=== PATIENT | female | born 1975 | race Caucasian/White ===

== ENCOUNTER → 2020-11-14 17:33 | Outpatient (BNVA) | payer MEDICAID, OTHER, SELFPAY | PROVIDERS: Family Provider Family Medicine; Visit Provider Emergency Medicine | DX: Z20.822 Contact with and (suspected) exposure to COVID-19 (principal); G40.909 Epilepsy, unspecified, not intractable, without status epilepticus | CPT/HCPCS: 87635 ==

== ENCOUNTER → 2020-12-21 16:41 | Outpatient (BNVA) | payer MEDICAID, SELFPAY | PROVIDERS: Family Provider Family Medicine; Visit Provider Family Medicine | DX: G40.909 Epilepsy, unspecified, not intractable, without status epilepticus (principal); I10 Essential (primary) hypertension; J44.9 Chronic obstructive pulmonary disease, unspecified; Z13.220 Encounter for screening for lipoid disorders; Z13.6 Encounter for screening for cardiovascular disorders; M54.12 Radiculopathy, cervical region; M25.511 Pain in right shoulder; G89.29 Other chronic pain; F41.1 Generalized anxiety disorder; F33.2 Major depressive disorder, recurrent severe without psychotic features; Z76.89 Persons encountering health services in other specified circumstances | CPT/HCPCS: 80053; 80061; 85025 ==

== ENCOUNTER 2020-12-27 10:55 | Emergency (ER) | payer MEDICAID, SELFPAY ==
--- NOTE | 2020-12-27 10:57 | ED_ITS ---
HPI - Seizure General: Chief Complaint: Seizure Stated Complaint: SEIZURE Time Seen by Provider: 12/27/20 10:56 History of Present Illness: HPI Narrative: Ms. Blanco is a 45-year-old lady with significant past medical history of seizures who presents to the emergency department due to seizure. She reports onset of symptoms was in the early after multiple traumatic brain injuries. Prior to this she never had a seizure. She has been on medication intermittently and has some struggles with substance abuse however reports being clean for a number of months. She ran out of her prescriptions about 5 days ago and just got them refilled. Earlier, while at [employer], she describes flashing lights in her left eye and a weird feeling and subsequently had witnessed tonic-clonic seizure activity. This aura is typical of her seizures. Other than missing doses of her antiepileptic medication she cannot think of any other specific changes in health, provoking, exacerbating factors. She denies infectious symptoms. She denies recent head trauma. Review of Systems General: Reports: 10 or more systems reviewed and unremarkable except in HPI and below Narrative: CONSTITUTIONAL: denies fever, fatigue, weakness EYES - denies pain, denies loss of vision EARS - denies ear issues. NOSE - denies congestion or rhinorrhea. THROAT - denies sore throat or difficulty swallowing. CARDIOVASCULAR - denies chest pain and palpitations RESPIRATORY - denies shortness of breath and cough GASTROINTESTINAL - denies abdominal pain, no nausea vomiting, no changes in bowel habits GENITOURINARY - denies dysuria or urinary frequency MUSCULOSKELETAL- denies deformity. Generalized muscle aches after seizure SKIN - denies rashes or new changed skin lesions NEUROLOGIC - denies focal weakness or sensory changes. See HPI HEMATOLOGIC/LYMPHATIC - denies easy bruising or lymphadenopathy. [facility] ED PFSH: Medical History Depression JEFFRY (generalized anxiety disorder) History of attempted suicide History of methamphetamine abuse Seizure disorder Social History Smoking and tobacco status: current every day smoker e-cigarettes E-Cigarette Details: vaporizer device Second hand smoke exposure: Yes Alcohol intake: former Year of sobriety/quit date alcohol: 2020 Female Reproductive History: Spontaneous abortions: No Physical Exam Narrative: EXAM NARRATIVE: GENERAL/CONSTITUTIONAL - well-appearing. No acute distress. Eyes - PERRL, no conjunctival injection ENMT - Atraumatic external nose and ears. Moist mucous membranes NECK - supple. trachea midline CARDIOVASCULAR - regular rate and rhythm. Peripheral pulses 2+ and equal RESPIRATORY -clear to auscultation bilaterally. No retractions or accessory muscle use. ABDOMEN/GI - Nontender/Nondistended. No tenderness to percussion or evidence of peritonitis MSK - Extremities without obvious deformity or tenderness to palpation SKIN - Warm, Dry NEURO - alert and appropriately oriented. strength and sensation intact. Moves all extremities equally. PSYCH - Appropriate mood and affect Course ED course: - Patient was seen and evaluated by me at bedside - Patient placed on cardiac monitors, IV access obtained - Initial evaluation notable for no acute distress, nontoxic appearance. - Fluids ordered - I was called back into the room as the patient was having another generalized tonic-clonic seizure. This terminated with 2 mg of Ativan and lasted approximately 2 minutes - Labs notable for no acute abnormality to explain the patient's seizures - The patient reported visual changes which are likely secondary to seizure activity however imaging warranted due to this. - Imaging notable for no acute intercranial hemorrhage or mass - Unfortunately neurology is not on-call this weekend. I tried to get recommendations from a neurologist via telephone in [place] however she was unwilling to give telephone recommendations regarding this patient. As such I use best clinical judgment and ordered Keppra dose. This was given in hopes that it would prevent further seizures until Topamax can reach therapeutic level. - Upon serial reexamination after treatment the patient was similar without development of additional seizures - Based on patient history, evaluation, labs, and imaging as interpreted the most likely cause of the patient's condition is baseline seizure disorder with missed doses of medication - The results of ED evaluation were discussed with the patient including prescriptions and/or symptomatic cares (if applicable) including appropriate and responsible use, followup plan, and return precautions. The patient verbalized understanding and felt safe for discharge. - Patient discharged in satisfactory condition. Vital Signs: Vital signs: Vital Signs Temperature 98.5 F 12/27/20 11:01 Pulse Rate 74 12/27/20 15:50 Respiratory Rate 15 12/27/20 15:50 Blood Pressure 104/72 12/27/20 15:50 Pulse Oximetry 95 12/27/20 15:50 MDM - Seizure Medical Records: Attestation: I reviewed the patient's medical records. Lab Data: Attestation: I reviewed the patient's lab results. Labs: Lab Results 12/27/20 12/27/20 12/27/20 Range/Units 11:55 11:55 11:55 WBC 7.9 (4.0-10.0) 10^3/ uL RBC 4.52 (4.1-5.3) 10^6/u L Hgb 14.6 (11.5-15.3) g/dL Hct 44.7 (37.0-47.0) % MCV 98.9 (81-99) fl MCH 32.3 (28.0-34.0) pg MCHC 32.7 (30.0-36.0) g/dL RDW 13.1 (12.1-15.1) % Plt Count 237 (130-400) 10^3/c mm MPV 10.7 H (7.4-10.4) fL Neut % (Auto) 53.7 % Lymph % (Auto) 34.6 % [place] % (Auto) 9.9 % Eos % (Auto) 0.8 % Baso % (Auto) 0.5 % Neut # (Auto) 4.26 (1.8-7.7) 10^3/u L Lymph # (Auto) 2.8 (0.8-4.8) 10^3/u L [place] # (Auto) 0.8 (0.2-0.9) 10^3/u L Eos # (Auto) 0.1 (0.0-0.8) 10^3/u L Baso # (Auto) 0.0 (0.0-0.1) 10^3/u L Nucleated RBC % (a uto) 0 % Nucleated RBCs # 0.0 /100WBC Sodium 138 (136-145) mmol/L Potassium 3.9 (3.5-5.1) mmol/L Chloride 100 (98-107) mmol/L Carbon Dioxide 21 L (22-29) mmol/L Anion Gap 20.9 H (5-19) BUN 18 (6-20) mg/dL Creatinine 0.6 (0.5-0.9) mg/dL GFR Calculation 107.2 (90-130) mL/min Glucose 82 (65-115) mg/dL Calculated Osmolal ity 287 (285-295) mOsm/k g Calcium 9.2 (8.5-10.5) mg/dL Magnesium 1.8 (1.7-2.3) mg/dL Total Bilirubin 0.2 (0.15-1.2) mg/dL AST 14 (0-32) U/L ALT 14 (0-33) U/L Alkaline Phosphata se 59 (35-105) IU/L Total Protein 6.8 (6.6-8.7) g/dL Albumin 4.1 (3.5-5.2) g/dL Globulin 2.7 (1.3-4.6) g/dL HCG, Qual Negative (Negative) Urine Color (Yellow) Urine Appearance (CLEAR) Urine pH (5-7) Ur Specific Gravit y (1.005-1.030) Urine Protein (Negative) Urine Glucose (UA) (Normal) Urine Ketones (Negative) Urine Blood (Negative) Urine Nitrate (Negative) Urine Bilirubin (Negative) Urine Urobilinogen (Negative) mg/dL Ur Leukocyte Keyanna ase (Negative) Valproic Acid 79.1 (50-100) ug/mL 12/27/20 Range/Units 14:03 WBC (4.0-10.0) 10^3/ uL RBC (4.1-5.3) 10^6/u L Hgb (11.5-15.3) g/dL Hct (37.0-47.0) % MCV (81-99) fl MCH (28.0-34.0) pg MCHC (30.0-36.0) g/dL RDW (12.1-15.1) % Plt Count (130-400) 10^3/c mm MPV (7.4-10.4) fL Neut % (Auto) % Lymph % (Auto) % [place] % (Auto) % Eos % (Auto) % Baso % (Auto) % Neut # (Auto) (1.8-7.7) 10^3/u L Lymph # (Auto) (0.8-4.8) 10^3/u L [place] # (Auto) (0.2-0.9) 10^3/u L Eos # (Auto) (0.0-0.8) 10^3/u L Baso # (Auto) (0.0-0.1) 10^3/u L Nucleated RBC % (a uto) % Nucleated RBCs # /100WBC Sodium (136-145) mmol/L Potassium (3.5-5.1) mmol/L Chloride (98-107) mmol/L Carbon Dioxide (22-29) mmol/L Anion Gap (5-19) BUN (6-20) mg/dL Creatinine (0.5-0.9) mg/dL GFR Calculation (90-130) mL/min Glucose (65-115) mg/dL Calculated Osmolal ity (285-295) mOsm/k g Calcium (8.5-10.5) mg/dL Magnesium (1.7-2.3) mg/dL Total Bilirubin (0.15-1.2) mg/dL AST (0-32) U/L ALT (0-33) U/L Alkaline Phosphata se (35-105) IU/L Total Protein (6.6-8.7) g/dL Albumin (3.5-5.2) g/dL Globulin (1.3-4.6) g/dL HCG, Qual (Negative) Urine Color Yellow (Yellow) Urine Appearance Clear (CLEAR) Urine pH 7 (5-7) Ur Specific Gravit y 1.005 (1.005-1.030) Urine Protein Neg (Negative) Urine Glucose (UA) Norm (Normal) Urine Ketones Negative (Negative) Urine Blood Neg (Negative) Urine Nitrate Negative (Negative) Urine Bilirubin Neg (Negative) Urine Urobilinogen Norm (Negative) mg/dL Ur Leukocyte Keyanna ase Negative (Negative) Valproic Acid (50-100) ug/mL Discharge Plan Discharge Patient Disposition: Home Clinical Impression: Seizure Condition: Stable Prescriptions: No Action gabapentin 300 mg capsule 300 mg PO BID PRN (Reason: arm pain) 30 Days Qty: 60 RF: 2 divalproex [Depakote] 500 mg tablet,delayed release (DR/EC) 500 mg PO BID 30 Days Qty: 60 RF: 2 topiramate 200 mg tablet 200 mg PO BID 30 Days Qty: 60 RF: 2 hydrochlorothiazide 25 mg tablet 25 mg PO DAILY RF: 0 fluoxetine 40 mg capsule 40 mg PO DAILY RF: 0 Discharge Orders: Discharge ED (Routine); Ordered 08/22/21 Ordered By: Magdiel Godwin Referrals: Tomeka Hughes MD [Primary Care Provider] - Discharge Diet: Usual diet Discharge Activity: Limit activity as instructed Patient Instructions: Recurrent Seizures Adult (ED), Women and Epilepsy (ED) Activity Restrictions/Additional Instructions: Thank you for visiting the emergency department. You were seen and evaluated for seizure. You had an additional seizure while in the emergency department. The cause of your seizures is likely due to your underlying seizure disorder and missed doses of medication. You were given an additional medication that should hopefully help prevent seizures until your typical regimen reaches therapeutic concentration. Please follow-up with your primary care provider and neurologist. Please continue to take your medications as prescribed. Please follow all standard seizure precautions including not driving, not swimming, not cooking over open flames, not performing any dangerous tasks that would otherwise put you at risk if you were to have another seizure. Please return to the emergency department for anything that you are concerned about and feel needs emergency department evaluation. Coding Level of Care Code ED Head Of Strategy for Sean Santos
[2020-12-27 11:01] VITALS: BP 115/79; PULSE 68; RESP 18; TEMP 36.9; O2SAT 98; BMI 35.3
[2020-12-27] MEDS: LORazepam 2 mg/mL INJ 1 mL IVP (11:42)
--- NOTE | 2020-12-27 11:43 | PC.NURSE ---
Pt actively starts seizing, duration 30s, 2mg IV Ativan administered. Seizing has resolved, pt now starting to respond verbally.
--- NOTE | 2020-12-27 12:00 | CTR_ITS ---
PROCEDURE INFORMATION: Exam: CT Head Without Contrast Exam date and time: 12/27/2020 12:00 PM Age: 45 years old Clinical indication: Other: Seizure TECHNIQUE: Imaging protocol: Computed tomography of the head without contrast. Radiation optimization: All CT scans at this facility use at least one of these dose optimization techniques: automated exposure control; mA and/or kV adjustment per patient size (includes targeted exams where dose is matched to clinical indication); or iterative reconstruction. COMPARISON: No relevant prior studies available. RADIATION DOSE METRICS: Total DLP (mGy-cm): 1250.62 FINDINGS: Brain: Symmetric prominence of the cortical sulci relative to the stated patient age. No acute cortical infarct, mass effect, or intracranial hemorrhage. Symmetric punctate basal ganglia hypodensities, which are not believed to be of acute clinical significance. Cerebral ventricles: Normal configuration of the ventricles. Paranasal sinuses: No sinus fluid. Mastoid air cells: No mastoid effusion. Bones/joints: No acute calvarial pathology. Soft tissues: Subtle infiltration of subcutaneous fat in the left frontal region. CT/CT head wo con* [id number] IMPRESSION: No acute intracranial pathology. Radiation Dose CTDIVOL = (mGy): DLP = 1250.62 (mGy-cm)
[2020-12-27] MEDS: sodium chloride 0.9% 1,000 ML 999 ML IV (12:01)
[2020-12-27] MEDS: acetaminophen 500 mg Tablet 1000 MG PO (12:01)
--- NOTE | 2020-12-27 12:07 | ECG_ITS ---
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 Measurements Intervals Challenge Rate: 70 P: 60 ME: 130 QRS: 55 QRSD: 95 T: 53 QT: 414 QTc: 449 Interpretive Statements SINUS RHYTHM POSSIBLE LEFT ATRIAL ENLARGEMENT [-0.1mV P WAVE IN V1/V2] POSSIBLE RIGHT VENTRICULAR CONDUCTION DELAY [RSR (QR) IN V1/V2] No previous ECG available for comparison Electronically Signed On 12-28-2020 13:27:01 CDT by Rupinder Juárez M.D. [id number]
[2020-12-27 12:08] LABS: Basophils % 0.5 %; Eosinophils # 0.1 10^3/uL (0.0-0.8); Eosinophils % 0.8 %; Hematocrit 44.7 % (37.0-47.0); Hemoglobin 14.6 g/dL (11.5-15.3); Lymphocytes # 2.8 10^3/uL (0.8-4.8); Lymphocytes % 34.6 %; Mean Corpuscular HGB Conc 32.7 g/dL (30.0-36.0); Mean Corpuscular Hemoglobin 32.3 pg (28.0-34.0); Mean Corpuscular Volume 98.9 fl (81-99); Mean Platelet Volume 10.7 fL (7.4-10.4); Monocytes # 0.8 10^3/uL (0.2-0.9); Monocytes % 9.9 %; Neutrophils # 4.26 10^3/uL (1.8-7.7); Neutrophils % 53.7 %; Nucleated Red Blood Cells % 0 %; Platelet Count 237 10^3/cmm (130-400); Red Blood Count 4.52 10^6/uL (4.1-5.3); Red Cell Distribution Width 13.1 % (12.1-15.1); White Blood Count 7.9 10^3/uL (4.0-10.0)
[2020-12-27 12:18] VITALS: BP 104/72; PULSE 74; RESP 15; O2SAT 95
[2020-12-27 12:37] LABS: Alanine Aminotransferase 14 U/L (0-33); Albumin Level 4.1 g/dL (3.5-5.2); Alkaline Phosphatase 59 IU/L (35-105); Anion Gap 20.9 (5-19); Aspartate Amino Transferase 14 U/L (0-32); Blood Urea Nitrogen 18 mg/dL (6-20); Calcium 9.2 mg/dL (8.5-10.5); Carbon Dioxide 21 mmol/L (22-29); Chloride 100 mmol/L (98-107); Globulin 2.7 g/dL (1.3-4.6); Glomerular Filtration Rate 107.2 mL/min (90-130); Glucose 82 mg/dL (65-115); Magnesium 1.8 mg/dL (1.7-2.3); Osmolality Calculated 287 mOsm/kg (285-295); Potassium 3.9 mmol/L (3.5-5.1); Sodium 138 mmol/L (136-145); Total Bilirubin 0.2 mg/dL (0.15-1.2); Total Protein 6.8 g/dL (6.6-8.7); Valproic Acid Level 79.1 ug/mL (50-100)
[2020-12-27 14:38] LABS: HCG, Serum Qual Negative (Negative)
[2020-12-27 15:50] VITALS: BP 104/72; PULSE 74; RESP 15; O2SAT 95
[2020-12-27 15:50] LABS: Add Urine Microscopic? NO; Bilirubin Urine Neg (Negative); Blood Urine Neg (Negative); Glucose Urine UA Norm (Normal); Ketones Urine Negative (Negative); Leukocyte Esterase Urine Negative (Negative); Nitrate Urine Negative (Negative); Protein Urine Neg (Negative); Specific Gravity, Urine 1.005 (1.005-1.030); Urine Appearance Clear (CLEAR); Urine Color Yellow (Yellow); Urobilinogen Urine Norm (Negative); pH Urine 7 (5-7)
[2020-12-27 15:52] LABS: Charge for UA Resulting for Rev
--- NOTE | 2020-12-28 08:45 | DCPLANNER ---
quality control systems manager had message to schedule a follow up appointment for patient with neurology. quality control systems manager emailed patients information to the neurology clinic. Patients information will be printed and reviewed. Clinic will call patient with appointment information.
--- NOTE | 2020-12-29 07:46 | DCPLANNER ---
Patient has a follow up appointment scheduled for Tuesday, January 05, 2021 at 12:[address] Peters. Clinic will contact patient with appointment information.
--- NOTE | 2021-01-06 13:35 | DCPLANNER ---
Patient had a follow up appointment scheduled for 01.05.[address] Peters - patient did attend appointment.
== END 2020-12-27 15:51 | disposition home or self-care (01) ==
PROVIDERS: Emergency Provider Emergency Medicine; PCP Family Medicine
DX: R56.9 Unspecified convulsions (principal); F17.210 Nicotine dependence, cigarettes, uncomplicated
CPT/HCPCS: 70450; 80053; 80164; 81003; 83735; 84703; 85025; 93005; 96361; 96374; 96375; 99284; J1953; J2060; J7030

== ENCOUNTER 2020-12-28 18:25 | Emergency (ER) | payer MEDICAID, SELFPAY ==
--- NOTE | 2020-12-28 18:30 | W.ED.SEIZURE ---
HPI - Seizure General: Chief Complaint: Seizure Stated Complaint: SEIZURE Time Seen by Provider: 12/28/20 18:25 Source: patient and EMS Mode of arrival: EMS Limitations: no limitations History of Present Illness: HPI Narrative: 45-year-old female has a long history of seizures he states she been out of her Depakote for a while but started taking again 6 days ago. Patient was seen here after seizure yesterday and had an extensive work-up and head CT that were all negative. Patient states she had one seizure today at 5 she is awake and alert now able answer my questions appropriately. Denies any headache. She states that she just recently moved here and does not have a PCP here but does see a Dr. Peters next week. Seizure History: Yes Associated symptoms: Deny chest pain, chills or fever(s) Review of Systems Const: Denies: fever(s), chills, body aches or change in appetite Eyes: Denies: blurry vision or eye discomfort ENMT: Denies: throat pain or dental pain Card: Denies: chest pain Resp: Denies: dyspnea GI: Denies: abdominal pain, nausea, vomiting or diarrhea : Denies: dysuria Musc: Denies: neck pain or back pain Skin/Breast: Denies: rash Neuro: Reports: seizure-like activity Psych: Denies: depression Turner/Lymph: Denies: easy bruising All/Imm: Denies: urticaria PFSH ED PFSH: Medical History (Updated 12/28/20 @ 18:59 by Chance Mccann MD) Depression JEFFRY (generalized anxiety disorder) History of attempted suicide History of methamphetamine abuse Seizure disorder Social History Smoking and tobacco status: current every day smoker e-cigarettes E-Cigarette Details: vaporizer device Second hand smoke exposure: Yes Alcohol intake: former Year of sobriety/quit date alcohol: 2020 Female Reproductive History: Spontaneous abortions: No Physical Exam Const: COMMON NORMALS: no acute distress, patient oriented x3 and healthy appearing HENMT: COMMON NORMALS: normocephalic and atraumatic HEAD & SCALP: normocephalic and atraumatic Eye: COMMON NORMALS: Equal, round and reactive pupils present and EOMs intact bilaterally PUPIL: Yes Equal, round and reactive pupils present Neck/C-Spine: COMMON NORMALS: full ROM and supple Chest: COMMONS NORMALS: normal inspection of the chest and normal palpation of entire chest wall Resp: COMMON NORMALS: normal respiratory effort, No retractions, No use of accessory muscles and clear to auscultation bilaterally AUSCULTATION: clear to auscultation bilaterally Cardio: COMMON NORMALS: regular rate, regular rhythm and No murmurs present (Cardio) RATE: regular rate RHYTHM: regular rhythm GI: COMMON NORMALS: Normal to inspection, nondistended, normoactive bowel sounds present, Soft to palpation, non-tender and no masses PALPATION: Yes Soft to palpation Extremity: COMMON NORMALS: normal to inspection and full ROM Neuro: COMMON NORMALS: patient oriented x3, moves all extremities and no focal motor deficits Psych: COMMON NORMALS: mental status grossly normal, Normal thought process present and cooperative THOUGHT PROCESS: Normal thought process present Skin: COMMON NORMALS: no rashes or lesions noted and no wounds GENERAL SKIN EXAM: no rashes or lesions noted Course Vital Signs: Vital signs: Vital Signs Temperature 98.2 F 12/28/20 18:32 Pulse Rate 68 12/28/20 18:32 Respiratory Rate 18 12/28/20 18:32 Blood Pressure 115/78 12/28/20 18:32 MDM - Seizure MDM Narrative: Medical decision making narrative: Patient presents here with a seizure. She has a long history of seizure disorder is seen here yesterday had a full work-up. She is at her baseline here and is well-appearing. She has a appoint with neurologist in a week as well. I feel she is stable for discharge and is to follow-up with PCP and return if worsening. Discharge Plan Discharge Patient Disposition: Home Clinical Impression: Seizure disorder Condition: Stable Prescriptions: No Action gabapentin 300 mg capsule 300 mg PO BID PRN (Reason: arm pain) 30 Days Qty: 60 RF: 2 divalproex [Depakote] 500 mg tablet,delayed release (DR/EC) 500 mg PO BID 30 Days Qty: 60 RF: 2 topiramate 200 mg tablet 200 mg PO BID 30 Days Qty: 60 RF: 2 hydrochlorothiazide 25 mg tablet 25 mg PO DAILY RF: 0 fluoxetine 40 mg capsule 40 mg PO DAILY RF: 0 Discharge Orders: Discharge ED (Routine); Ordered 12/28/20 Ordered By: Korby Siobhan Referrals: Tomeka Hughes MD [Primary Care Provider] - 1-3 days Discharge Diet: Advance as tolerated Discharge Activity: Resume usual activity Patient Instructions: Seizures Coding Level of Care Code ED Movable Bulkhead Installer for Chg Fwd Exam Comprehensive
[2020-12-28 18:32] VITALS: BP 115/78; PULSE 68; RESP 18; TEMP 36.8; BMI 35.4
[2020-12-28] MEDS: LORazepam 2 mg/mL INJ 1 mL 1 MG IVP (19:04)
[2020-12-28 19:08] VITALS: BP 114/71; PULSE 60; RESP 18; O2SAT 99
== END 2020-12-28 19:10 | disposition home or self-care (01) ==
PROVIDERS: Emergency Provider Emergency Medicine; PCP Family Medicine
DX: G40.909 Epilepsy, unspecified, not intractable, without status epilepticus (principal); F17.210 Nicotine dependence, cigarettes, uncomplicated
CPT/HCPCS: 96374; 99283; J2060

== ENCOUNTER → 2021-01-05 12:02 | Outpatient (BNVA) | payer MEDICAID, SELFPAY | PROVIDERS: PCP Family Medicine; Visit Provider Specialist | DX: G40.209 Localization-related (focal) (partial) symptomatic epilepsy and epileptic syndromes with complex partial seizures, not intractable, without status epilepticus (principal); G40.909 Epilepsy, unspecified, not intractable, without status epilepticus; F43.10 Post-traumatic stress disorder, unspecified; F15.21 Other stimulant dependence, in remission; F17.290 Nicotine dependence, other tobacco product, uncomplicated | CPT/HCPCS: 99205 ==

== ENCOUNTER → 2021-02-22 12:56 | Outpatient (BNVA) | payer MEDICAID, SELFPAY | PROVIDERS: PCP Family Medicine; Visit Provider Specialist | DX: G40.209 Localization-related (focal) (partial) symptomatic epilepsy and epileptic syndromes with complex partial seizures, not intractable, without status epilepticus (principal); F17.290 Nicotine dependence, other tobacco product, uncomplicated | CPT/HCPCS: 95816 ==

== ENCOUNTER 2021-02-23 11:10 | Observation (INO) | payer MEDICAID, SELFPAY ==
--- NOTE | 2021-02-23 11:12 | XRR_ITS ---
PROCEDURE INFORMATION: Exam: XR Chest Exam date and time: 02/23/2021 11:12 AM Age: 45 years old Clinical indication: Pain and condition or disease; Other: Seizure; Angina pectoris; Prior surgery; Surgery type: Back, gallbladder; Additional info: Chest pain TECHNIQUE: Imaging protocol: XR of the chest. Views: 1 view. COMPARISON: No relevant prior studies available. FINDINGS: Lungs: Unremarkable. No consolidation. Pleural spaces: Unremarkable. No pleural effusion. No pneumothorax. Heart/Mediastinum: Unremarkable. No cardiomegaly. Bones/joints: Unremarkable. XR/XR chest 1V portable [id number] IMPRESSION: No acute findings. Radiation Dose CTDIVOL = (mGy): DLP = (mGy-cm)
[2021-02-23 11:13] VITALS: BP 141/78; PULSE 57; RESP 18; TEMP 37.3; O2SAT 99; BMI 35.9
--- NOTE | 2021-02-23 11:18 | ED_ITS ---
HPI - General Adult General: Chief complaint: Seizure Stated complaint: SEIZURE Time Seen by Provider: 02/23/21 11:12 History of Present Illness: HPI narrative: HPI: [45]yo patient w/ hx ofepilespy on multiple medication BIBA to the ED with breakthrough episode of the seizure which occurred 1 hrs ago at work. The incident was witnessed entirely by coworkers while patient slowly got to the ground and started shaking. En route, the patient had a fingerstick glucose of 90 and was back to baseline. HDS without any signs of focal neurological deficits. On arrival, the patient is AAOx3, GCS of 15 and answering all questions. The patient denies any associated chest pain, shortness of breath, palpitations, or any focal pain in the arms and legs. Last time breakthrough seizure occurred last monday Onset: 1 hr ago Duration: x1 episode Location: home Severity: moderate Review of Systems Narrative: Constitutional: No fever, no chills. HEENT: No vision changes, +neck pain CV: No chest pain, no palpitations PULM: No productive cough, no dyspnea. GI: No abdominal pain, no N/V/D. : No Dysuria MSKEL: +b/l shoulder pain SKIN: No new rashes, no lesions. NEURO: +headache, no focal weakness. + 1 episode of seizure HEME: No visible bruises PSYCH: Normal mood PFSH ED PFSH: Medical History (Updated 02/23/21 @ 16:45 by Michelle Montana MD) Depression JEFFRY (generalized anxiety disorder) History of attempted suicide History of methamphetamine abuse Seizure disorder Surgical History (Updated 02/23/21 @ 16:45 by Michelle Montana MD) History of cholecystectomy Tubal ligation status Social History Smoking and tobacco status: current every day smoker (vape) e-cigarettes E- Cigarette Details: vaporizer device Second hand smoke exposure: Yes Alcohol intake: former Year of sobriety/quit date alcohol: 2020 Female Reproductive History: Spontaneous abortions: No Physical Exam Narrative: EXAM NARRATIVE: Head: Atraumatic Eyes: PERRL, conjunctiva without injection, eyes tracking ENT: Mucous membrane moist NECK: Supple without lymphadenopathy, no midline tenderness LUNGS: LCTAB CV: RRR ABDOMEN: Soft, nontender in all quadrants, no guarding or rebound tenderness, no CVA or flank tenderness bilaterally EXTREMITY: Normal ROM intact over the shoulders SKIN: No rash or erythema NEURO: CN II-XII tested and intact. Sensation intact to sharp/dull differentiation in all extremities. Motor: Normal tone and bulk. No abnormal movements appreciated. No pronator drift. Strength tested and 5/5 in bilateral wrist flexion/extension, elbow flexion/extension, shoulder abduction, straight leg raise, knee flexion/extension, ankle dorsiflexion/plantarflexion. Patient ambulates with a steady gait. Coordination: Finger to nose and heel to bethea testing intact bilaterally. Reflexes intact in the ankles, knees, and elbows bilaterally PSYCH: Cooperative mood and affect Course Vital Signs: Vital signs: Vital Signs Temperature 97.8 F 02/25/21 14:07 Pulse Rate 62 02/25/21 14:07 Respiratory Rate 16 02/25/21 14:07 Blood Pressure 106/70 02/25/21 14:07 Pulse Oximetry 97 02/25/21 14:07 MDM - General Adult MDM Narrative: Medical decision making narrative: [45]yo patient w/ known hx of seizure on divalproex, keppra and topiramate BIBA after an episode of seizure with unknown duration which occurred 60 minutes ago. Back to baseline on arrival, AAOX3 with non-focal neuro exam. HDS. Exam revealed no focal trauma/deformity/bruises.The episode of seizure was witnessed and without any trauma/injury to the head. No immunosuppression hx and without preceding fever. No history of alcohol abuse or suspicion for toxin ingestion. Hx of prior seizure likely breakthrough seizure in the setting of medication change/non- compliance. H No lips/tongue lacerations. No visible bowel/bladder incontinence Airway protected. No drooling. Sats > 95%. Unlikely to be stroke, neurogenic syncope, acute delirium, intracranial tumor/mass, intracranial bleed, SAH/subdural hematoma/epidural hematoma, meningitis, or intracranial abscess, or from alcohol withdrawal. EMS Interventions: Workup: CBC, BMP, Magnesium, EKG, valproic acid level, tropoinin, and XR chest ED Interventions: 1g of keppra, PO challenge, serial reassessment EKG: No e/o STEMI. No evidence of Brugada?s sign, delta wave, epsilon wave, significantly prolonged QTc, or malignant arrhythmia. Lab findings: Electrolytes including K and Mg wnl. [2:23pm] On reassessment, patient back to baseline. Patient continued to have 2 episodes of seizures while observed in the ED. time, patient rolls her eyes back and start shaking in her arms and biting her tongue. Patient did not have any general clonic seizure in the lower extremities. Patient received 4 mg of Ativan, 50 mg of Librium, and 500 mg of valproic acid. Case was discussed with Dr. Peters who informs that patient had an EEG yesterday that was negative. Patient will be admitted to the hospital for observation and breakthrough seizure. Reported of fourteen today. Will trend with serial troponin and EKG. Disposition: Admission Lab Data: Labs: Lab Results 02/23/21 02/23/21 02/23/21 12:20 12:20 12:20 WBC 8.5 10^3/uL 10^3/ uL (4.0-10.0) RBC 4.17 10^6/uL 10^6 /uL (4.1-5.3) Hgb 13.6 g/dL g/dL (11.5-15.3) Hct 40.9 % % (37.0-47.0) MCV 98.1 fl fl (81-99) MCH 32.6 pg pg (28.0-34.0) MCHC 33.3 g/dL g/dL (30.0-36.0) RDW 12.2 % % (12.1-15.1) Plt Count 227 10^3/cmm 10^3 /cmm (130-400) MPV 11.0 fL H fL (7.4-10.4) Neut % (Auto) 60.6 % % Lymph % (Auto) 27.8 % % Mcduffie % (Auto) 9.5 % % Eos % (Auto) 1.2 % % Baso % (Auto) 0.5 % % Neut # (Auto) 5.16 10^3/uL 10^3 /uL (1.8-7.7) Lymph # (Auto) 2.4 10^3/uL 10^3/ uL (0.8-4.8) Mcduffie # (Auto) 0.8 10^3/uL 10^3/ uL (0.2-0.9) Eos # (Auto) 0.1 10^3/uL 10^3/ uL (0.0-0.8) Baso # (Auto) 0.0 10^3/uL 10^3/ uL (0.0-0.1) Nucleated RBC % (a uto) 0 % % Nucleated RBCs # 0.0 /100WBC /100W BC Sodium 137 mmol/L mmol/L (136-145) Potassium 3.7 mmol/L mmol/L (3.5-5.1) Chloride 102 mmol/L mmol/L (98-107) Carbon Dioxide 25 mmol/L mmol/L (22-29) Anion Gap 13.7 (5-19) BUN 15 mg/dL mg/dL (6-20) Creatinine 0.6 mg/dL mg/dL (0.5-0.9) GFR Calculation 107.2 mL/min mL/m in (90-130) Glucose 83 mg/dL mg/dL (65-115) Calculated Osmolal ity 284 mOsm/kg L mOs m/kg (285-295) Calcium 8.6 mg/dL mg/dL (8.5-10.5) Magnesium 2.0 mg/dL mg/dL (1.7-2.3) Total Bilirubin 0.2 mg/dL mg/dL (0.15-1.2) AST 10 U/L U/L (0-32) ALT 10 U/L U/L (0-33) Alkaline Phosphata se 47 IU/L IU/L (35-105) Troponin T Gen 5 n g/L 14 ng/L H ng/L (0-10) Total Protein 6.2 g/dL L g/dL (6.6-8.7) Albumin 4.1 g/dL g/dL (3.5-5.2) Globulin 2.1 g/dL g/dL (1.3-4.6) Lipase 9 U/L L U/L (13-60) Urine Color Urine Appearance Urine pH Ur Specific Gravit y Urine Protein Urine Glucose (UA) Urine Ketones Urine Blood Urine Nitrate Urine Bilirubin Urine Urobilinogen Ur Leukocyte Keyanna ase Urine HCG, Qual Urine Opiates Scre en Ur Barbiturates Sc reen Valproic Acid 50.0 ug/mL ug/mL (50-100) Ur Phencyclidine S crn Ur Amphetamines Sc reen U Benzodiazepines Scrn Urine Cocaine Scre en U Marijuana (THC) Screen 02/23/21 02/23/21 02/23/21 12:20 12:20 12:20 WBC RBC Hgb Hct MCV MCH MCHC RDW Plt Count MPV Neut % (Auto) Lymph % (Auto) Mcduffie % (Auto) Eos % (Auto) Baso % (Auto) Neut # (Auto) Lymph # (Auto) Mcduffie # (Auto) Eos # (Auto) Baso # (Auto) Nucleated RBC % (a uto) Nucleated RBCs # Sodium Potassium Chloride Carbon Dioxide Anion Gap BUN Creatinine GFR Calculation Glucose Calculated Osmolal ity Calcium Magnesium Total Bilirubin AST ALT Alkaline Phosphata se Troponin T Gen 5 n g/L Total Protein Albumin Globulin Lipase Urine Color Straw (Yellow) Urine Appearance Clear (CLEAR) Urine pH 7 (5-7) Ur Specific Gravit y 1.005 (1.005-1.030) Urine Protein Neg (Negative) Urine Glucose (UA) Norm (Normal) Urine Ketones Negative (Negative) Urine Blood Neg (Negative) Urine Nitrate Negative (Negative) Urine Bilirubin Neg (Negative) Urine Urobilinogen Norm mg/dL mg/dL (Negative) Ur Leukocyte Keyanna ase Negative (Negative) Urine HCG, Qual Negative (Negative) Urine Opiates Scre en Negative ng/mL ng /mL (Negative) Ur Barbiturates Sc reen Negative ng/mL ng /mL (Negative) Valproic Acid Ur Phencyclidine S crn Negative ng/mL ng /mL (Negative) Ur Amphetamines Sc reen Negative ng/mL ng /mL (Negative) U Benzodiazepines Scrn Negative ng/mL ng /mL (Negative) Urine Cocaine Scre en Negative ng/mL ng /mL (Negative) U Marijuana (THC) Screen Negative ng/mL ng /mL (Negative) Imaging Data^: Other Imaging: Radiologist's impression: [address] [id number] Scan ReportSigned Patient: Sayra Blanco #: [id number]: 1975Acct#:[id number]/Sex: 45 / FADM Date: 02/23/21Loc: ERRoom/Bed:Attending Dr: Ordering Provider/Ordering MD: Kristopher Clarke MD Date of Service: 02/23/21 Procedure(s): CT head wo con* [id number] Accession Number(s): [id number] Report Number: [id number] PROCEDURE INFORMATION: Exam: CT Head Without Contrast Exam date and time: 02/23/2021 1:52 PM Age: 45 years old Clinical indication: Other: Seziure; Additional info: Seizure multiple TECHNIQUE: Imaging protocol: Computed tomography of the head without contrast. Radiation optimization: All CT scans at this facility use at least one of these dose optimization techniques: automated exposure control; mA and/or kV adjustment per patient size (includes targeted exams where dose is matched to clinical indication); or iterative reconstruction. COMPARISON: CT head wo con* [id number] 12/27/2020 12:27 PM RADIATION DOSE METRICS: Total DLP (mGy-cm): 1975.59 FINDINGS: Brain: No acute intracranial hemorrhage, cerebral edema, or midline shift. Cerebral ventricles: No hydrocephalus. Paranasal sinuses: There is no acute sinusitis. Mastoid air cells: Visualized mastoid air cells are well aerated. Orbital cavity: Unremarkable as visualized. Bones/joints: No acute fracture. Soft tissues: Unremarkable. CT/CT head wo con* [id number] IMPRESSION: No acute intracranial abnormality. Radiation Dose CTDIVOL = (mGy): DLP = 1976.59 (mGy-cm) Dictated By:Robin Coleman MDSigned By:Robin Coleman MDSigned Date/Time:02/23/21 [id number]/ 1352 Discharge Plan Discharge Patient Disposition: Admitted As Inpatient Admit Provider: Michelle Montana Clinical Impression: Seizure Condition: Stable Discharge Diet: Advance as tolerated and Regular Discharge Activity: Resume usual activity Coding Level of Care Code ED Stretching Press Operator for Kristalg Tom
[2021-02-23] MEDS: sodium chloride 0.9% 1,000 ML 999 ML IV (11:30)
[2021-02-23] MEDS: LORazepam 2 mg/mL INJ 1 mL IVP ×2 (11:30→13:48)
[2021-02-23 12:45] LABS: Basophils % 0.5 %; Eosinophils # 0.1 10^3/uL (0.0-0.8); Eosinophils % 1.2 %; Hematocrit 40.9 % (37.0-47.0); Hemoglobin 13.6 g/dL (11.5-15.3); Lymphocytes # 2.4 10^3/uL (0.8-4.8); Lymphocytes % 27.8 %; Mean Corpuscular HGB Conc 33.3 g/dL (30.0-36.0); Mean Corpuscular Hemoglobin 32.6 pg (28.0-34.0); Mean Corpuscular Volume 98.1 fl (81-99); Monocytes # 0.8 10^3/uL (0.2-0.9); Monocytes % 9.5 %; Neutrophils # 5.16 10^3/uL (1.8-7.7); Neutrophils % 60.6 %; Nucleated Red Blood Cells % 0 %; Platelet Count 227 10^3/cmm (130-400); Red Blood Count 4.17 10^6/uL (4.1-5.3); Red Cell Distribution Width 12.2 % (12.1-15.1); White Blood Count 8.5 10^3/uL (4.0-10.0)
[2021-02-23 13:00] LABS: Alanine Aminotransferase 10 U/L (0-33); Albumin Level 4.1 g/dL (3.5-5.2); Alkaline Phosphatase 47 IU/L (35-105); Anion Gap 13.7 (5-19); Aspartate Amino Transferase 10 U/L (0-32); Blood Urea Nitrogen 15 mg/dL (6-20); Calcium 8.6 mg/dL (8.5-10.5); Carbon Dioxide 25 mmol/L (22-29); Chloride 102 mmol/L (98-107); Globulin 2.1 g/dL (1.3-4.6); Glomerular Filtration Rate 107.2 mL/min (90-130); Glucose 83 mg/dL (65-115); Lipase 9 U/L (13-60); Osmolality Calculated 284 mOsm/kg (285-295); Potassium 3.7 mmol/L (3.5-5.1); Sodium 137 mmol/L (136-145); Total Bilirubin 0.2 mg/dL (0.15-1.2); Total Protein 6.2 g/dL (6.6-8.7)
[2021-02-23 13:26] LABS: Troponin T (5th) Once 14 ng/L (0-10)
--- NOTE | 2021-02-23 13:52 | CTR_ITS ---
PROCEDURE INFORMATION: Exam: CT Head Without Contrast Exam date and time: 02/23/2021 1:52 PM Age: 45 years old Clinical indication: Other: Seziure; Additional info: Seizure multiple TECHNIQUE: Imaging protocol: Computed tomography of the head without contrast. Radiation optimization: All CT scans at this facility use at least one of these dose optimization techniques: automated exposure control; mA and/or kV adjustment per patient size (includes targeted exams where dose is matched to clinical indication); or iterative reconstruction. COMPARISON: CT head wo con* [id number] 12/27/2020 12:27 PM RADIATION DOSE METRICS: Total DLP (mGy-cm): 1976.59 FINDINGS: Brain: No acute intracranial hemorrhage, cerebral edema, or midline shift. Cerebral ventricles: No hydrocephalus. Paranasal sinuses: There is no acute sinusitis. Mastoid air cells: Visualized mastoid air cells are well aerated. Orbital cavity: Unremarkable as visualized. Bones/joints: No acute fracture. Soft tissues: Unremarkable. CT/CT head wo con* [id number] IMPRESSION: No acute intracranial abnormality. Radiation Dose CTDIVOL = (mGy): DLP = 1976.59 (mGy-cm)
--- NOTE | 2021-02-23 14:07 | PC.PHAR ---
PT STATES SHE TAKES CARE OF HER OWN MEDICATIONS-PT STATES SHE GETS SUICIDAL THOUGHTS WHEN SHE TAKES [facility]-EXT MED HISTORY SHOWS LAST FILLED ON 02/01/21 30D/S FOR XR 1,000MG DAILY PT STATES SHE TOOK A FEW DAYS AND HASNT TAKEN SINCE STATES IT GIVES HER SUICIDAL THOUGHTS AND STATES SHE WILL NOT TAKE-NOTES ARE MADE IN THE PHARMACY COMMENTS
--- NOTE | 2021-02-23 14:20 | P.HP_ITS ---
Providers/Chief Complaint Primary Care Provider: Tomeka Hughes MD Chief Complaint: SEIZURE History of Present Illness Carlee Blanco is a 45 year old female established history of seizure disorder presented today after an episode of seizure while at work. 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 She could not tolerate flickering of the room light and immediately stepped away from the machine, went outside and fell & started experiencing tonic-clonic seizure. She was brought to the ER for further evaluation. In the ER there were 3-4 episodes of tonic-clonic seizure and postictal confusion reported by the ER staff, she received IV Keppra, Librium and multiple dose of Ativan. At the time of my evaluation patient was drowsy however responds very well to verbal commands answer my questions appropriately, neuro exam nonfocal, able to mention above detail. He does endorse to using electronic cigarettes/vaps. Patient is stating that she would never take Keppra again which makes her suicidal. Normal CBC, BMP, CT head pending, check magnesium level, drug screen, alcohol level. ER physician did talk with Dr. Peters who recommended increasing valproic dose to 1500 mg daily. Review of Systems Const: Reports: chills and body aches Eyes: Denies: change in vision ENMT: Denies: throat pain Card: Denies: chest pain Resp: Denies: dyspnea GI: Reports: abdominal pain : Denies: flank pain Musc: Reports: neck pain Skin/Breast: Denies: rash Neuro: Reports: dizziness and seizure-like activity; Denies: headache(s) Psych: Reports: anxiety Endo: Reports: polyuria Turner/Lymph: Denies: easy bruising All/Imm: Denies: urticaria Medications/Allergies Home Medications Medication Instructions Recorded Confirmed Last Taken Type gabapentin 300 mg capsule 300 mg PO BID PRN 30 Days #60 cap 12/21/20 02/23/21 12/28/20 Rx hydrochlorothiazide 25 mg PO DAILY 12/27/20 02/23/21 02/23/21 09:00 History fluoxetine 40 mg capsule 40 mg PO DAILY 30 Days #30 cap 01/29/21 02/23/21 02/23/21 Rx divalproex 500 mg tablet,delayed 500 mg PO BID 30 Days #60 tab 02/02/21 02/23/21 02/23/21 09:00 Rx release topiramate 200 mg tablet 200 mg PO BID 30 Days #60 tab 02/22/21 02/23/21 02/23/21 09:00 Rx albuterol sulfate [ProAir HFA] 2 puff INHALATION Q4H PRN 02/23/21 02/23/21 Unknown History ibuprofen 800 mg PO Q4H PRN 02/23/21 02/23/21 Unknown History levetiracetam [Keppra] 750 mg PO BID 14 Days #28 tab 02/23/21 Unknown Rx Allergies Allergy/AdvReac Type Severity Reaction Status Date / Time azithromycin Allergy Severe ALGY-Anaphy Verified 02/23/21 14:05 laxis clarithromycin [From Biaxin] Allergy Mild ALGY-RASH Verified 02/23/21 14:05 codeine Allergy Mild ALGY-RASH Verified 02/23/21 14:05 morphine Allergy Mild ALGY-RASH Verified 02/23/21 14:05 levetiracetam [From Keppra] Allergy Unknown Verified 02/23/21 14:05 PFSH Acute PFSH: Medical History (Updated 02/23/21 @ 16:45 by Michelle Montana MD) Depression JEFFRY (generalized anxiety disorder) History of attempted suicide History of methamphetamine abuse Seizure disorder Surgical History (Updated 02/23/21 @ 16:45 by Michelle Montana MD) History of cholecystectomy Tubal ligation status Social History Smoking and tobacco status: current every day smoker (vape) e-cigarettes E- Cigarette Details: vaporizer device Second hand smoke exposure: Yes Alcohol intake: former Year of sobriety/quit date alcohol: 2020 Female Reproductive History: Spontaneous abortions: No Vitals/I&O/Wt Last Vital Signs Temp 99.1 F 02/23/21 11:13 Pulse 57 L 02/23/21 11:13 Resp 18 02/23/21 11:13 BP 141/78 02/23/21 11:13 Pulse Ox 99 02/23/21 11:13 Weight last 48 hrs Weight 86.183 kg Physical Exam Narrative: EXAM NARRATIVE: Patient was drowsy when entered the room however verbally redirectable EOMI, PERRLA NIH 0 Nonfocal neuro exam S1, S2 sinus rhythm no murmur Abdomen soft nontender no signs of peritonitis Lower symmetry no edema Nonfocal neuro exam No joint swelling Multiple skin tattoos Does not look dehydrated Appears stated age, Data : 02/23/21 12:20 02/23/21 12:20 A&P Assessment and plan (1) Seizure disorder: Status: Acute (2) Breakthrough seizure: Status: Acute (3) Vapes non-nicotine containing substance: Status: Acute Additional A&P Information Breakthrough seizure Seizure disorder history Recent normal EEG On Valproic acid, topamax and keppra at home Pt does not want to use Keppra As per neuro rec'ds would increase valproic acid to 1500mg daily dose, low normal level of depakote noted CT head requested Normal Cbc and bmp, check calcium and magnesium level Check Drug screen and etoh level No signs of infection, non focal neuro exam, no fever or sepsis Does use VAP, Not sure whether it has some interaction with her antiepileptics Full code Regular diet DVT ppx: Lovenox Attestations Medical Necessity Statement*: Anticipating discharge less than 48 hours Time Spent in Patient Care: Greater than 35 minutes Coding Level of Care Code Acute Machine Staker for Kristalg Fwd Diagnoses Seizure disorder G40.909 Breakthrough seizure G40.919 Vapes non-nicotine containing substance Z72.89
[2021-02-23 15:34] LABS: Troponin 5 2HR 20.76 ng/L (0-10)
--- NOTE | 2021-02-23 16:18 | ECG_ITS ---
[facility] Test Date: 2021-02-23 Pat Name: Carlee Blanco Department: Room: Gender: Female Racing Manager: : 1975 Requested By: Kristopher Clarke Order Number: [id number] Reading MD: NERISSA VINCENT Measurements Intervals [place] Rate: 57 P: 63 NJ: 114 QRS: 68 QRSD: 102 T: 73 QT: 432 QTc: 423 Interpretive Statements SINUS BRADYCARDIA WITH SINUS ARRHYTHMIA WITH SHORT [place] INTERVAL POSSIBLE LEFT ATRIAL ENLARGEMENT [-0.1mV P-WAVE IN V1/V2] INCOMPLETE RIGHT BUNDLE BRANCH BLOCK [90+ ms QRS DURATION, TERMINAL R IN V1/V2, 40+ ms S IN I/aVL/V4/V5/V6] MODERATE ST DEPRESSION [0.05+ mV ST DEPRESSION] Compared to ECG 12/27/2020 12:41:29 Short [place] interval now present Incomplete right bundle-branch block now present ST (T wave) deviation now present Sinus rhythm no longer present Electronically Signed On 02-23-2021 22:57:39 CDT by NERISSA VINCENT [id number]
[2021-02-23 16:19] LABS: Troponin 5 2HR Delta 6.76 ABS# (0-10)
[2021-02-23 16:35] LABS: Add Urine Microscopic? NO; Charge for UA Resulting for Rev
[2021-02-23 17:12] LABS: Alcohol Level < 10 mg/dL (0-10)
[2021-02-23 17:13] LABS: Bilirubin Urine Neg (Negative); Blood Urine Neg (Negative); Glucose Urine UA Norm (Normal); Ketones Urine Negative (Negative); Leukocyte Esterase Urine Negative (Negative); Nitrate Urine Negative (Negative); Protein Urine Neg (Negative); Specific Gravity, Urine 1.005 (1.005-1.030); Urine Appearance Clear (CLEAR); Urine Color Straw (Yellow); Urobilinogen Urine Norm (Negative); pH Urine 7 (5-7)
[2021-02-23 17:22] LABS: Amphetamines Screen Urine Negative (Negative); Barbiturates Screen Urine Negative (Negative); Benzodiazepines Screen Urine Negative (Negative); Cocaine Screen Urine Negative (Negative); Opiate Screen Urine Negative (Negative); PCP Screen Urine Negative (Negative); THC Screen Urine Negative (Negative)
[2021-02-23] MEDS: chlordiazePOXIDE 25 mg Capsule 50 MG PO (18:25)
[2021-02-23 18:33] LABS: Troponin 5 6HR 14.45 ng/L (0-10)
[2021-02-23 18:35] LABS: Troponin 5 6HR Delta 0.45 ng/L (0-12)
--- NOTE | 2021-02-23 20:18 | ECG_ITS ---
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: : 1975 Requested By: Kristopher Clarke Order Number: [id number] Reading MD: NERISSA VINCENT Measurements Intervals [place] Rate: 56 P: 60 MS: 123 QRS: 57 QRSD: 101 T: 62 QT: 445 QTc: 432 Interpretive Statements SINUS BRADYCARDIA POSSIBLE LEFT ATRIAL ENLARGEMENT [-0.1mV P-WAVE IN V1/V2] POSSIBLE RIGHT VENTRICULAR CONDUCTION DELAY [RSR (QR) IN V1/V2] Compared to ECG 12/27/2020 12:41:29 Sinus rhythm no longer present Electronically Signed On 02-23-2021 22:57:45 CDT by NERISSA VINCENT [id number]
[2021-02-23 20:27] VITALS: BMI 35.9
[2021-02-23 20:43] VITALS: BP 112/69; PULSE 64; RESP 17; TEMP 36.6; O2SAT 99
[2021-02-23] MEDS: enoxaparin 40 mg/0.4 mL Syringe SUBCUT (21:52)
[2021-02-24] VITALS (8 sets, daily range): BP systolic 97–109; BP diastolic 59–76; PULSE 64–82; RESP 14–18; TEMP 36.4–37.1; O2SAT 95–98
--- NOTE | 2021-02-24 04:49 | PC.NURSE ---
Patient arrived to floor via stretcher, no c/o pain, c/o weakness and shaky. VSS, seizure precautions in place, patient on bedrest, room clutter free and call light in reach.
[2021-02-24 05:42] LABS: Basophils % 0.5 %; Eosinophils # 0.1 10^3/uL (0.0-0.8); Eosinophils % 1.7 %; Hematocrit 40.8 % (37.0-47.0); Hemoglobin 13.3 g/dL (11.5-15.3); Lymphocytes # 2.9 10^3/uL (0.8-4.8); Lymphocytes % 37.3 %; Mean Corpuscular HGB Conc 32.6 g/dL (30.0-36.0); Mean Corpuscular Hemoglobin 32.7 pg (28.0-34.0); Mean Corpuscular Volume 100.2 fl (81-99); Monocytes # 0.9 10^3/uL (0.2-0.9); Monocytes % 11.3 %; Neutrophils # 3.83 10^3/uL (1.8-7.7); Neutrophils % 48.7 %; Nucleated Red Blood Cells % 0 %; Platelet Count 230 10^3/cmm (130-400); Red Blood Count 4.07 10^6/uL (4.1-5.3); Red Cell Distribution Width 12.4 % (12.1-15.1); White Blood Count 7.9 10^3/uL (4.0-10.0)
[2021-02-24 06:13] LABS: Blood Urea Nitrogen 14 mg/dL (6-20); Calcium 8.9 mg/dL (8.5-10.5); Carbon Dioxide 27 mmol/L (22-29); Chloride 100 mmol/L (98-107); Creatinine Clr Calc Pharmacy 99.0528; Glomerular Filtration Rate 89.7 mL/min (90-130); Glucose 99 mg/dL (65-115); Osmolality Calculated 287 mOsm/kg (285-295); Sodium 138 mmol/L (136-145)
[2021-02-24 06:26] LABS: Anion Gap 14.7 (5-19); Potassium 3.7 mmol/L (3.5-5.1)
[2021-02-24] MEDS: hydroCHLOROthiazide 25 mg Tablet PO (08:15)
[2021-02-24] MEDS: topiramate 100 mg Tablet 200 MG PO ×2 (08:15→17:50)
[2021-02-24] MEDS: fluoxetine 20 mg Capsule 40 MG PO (08:15)
--- NOTE | 2021-02-24 10:21 | PC.CHAP ---
Pastoral Care Encounter/Spiritual Assessment Type of Contact [] Declined sewer visit [] Patient/Family/Request visit [] Outpatient visit [] Follow-up visit [] Physician referral [] Code/Alert [X] Routine visit [] Staff referral [] Actively dying [] Patient sleeping [] Family support [] [] Out of room [] Palliative care [] [] Receiving care in room [] Pre-surgical visit [] Trauma [] Long length of stay [] ICU visit [] Other: Relational/Emotional Strength [X] Patient feels connected with others/family/visitors/staff [] Distress [] Loneliness/isolation [] Abandonment Spirituality of Patient [X] Person of Elo [] Attends Bahai of their Elo [X] Believes in Prayer [] Reads Bible or Muslim materials [] There are Spiritual issues to be addressed Patch Machine Operator Interventions [X] Prayer [] Active listening [] Non-anxious presence [] Spiritual/emotional support [] Crisis/trauma care [] Spiritual counseling [] Bereavement support [] Provided bereavement packet [] Provided Bible/devotional materials [] Provided toy/stuffed animal, coloring book to patient or family member [] Provided Communion [] Anointing/Tram [] Salvation [X] Completed spiritual assessment [] Other: Impact on Illness or Injury [] Angry [] Fearful [] Anxious [] Often cries [] Exhaustion [] Unable to work [] Unable to attend gnosticism [] Unable to walk/stand [] Unable to read [] Unable to drive [] Unable to eat/drink [] Unable to sleep [] Unable to be with family [] Patient intubated [] Other: Summary Time spent with patient
--- NOTE | 2021-02-24 11:27 | P.DS_ITS ---
Discharge Providers Date of Admission: 02/23/21 14:17 Date of Discharge: February 24, 2021 Attending Provider at Admission: Michelle Montana MD Attending Provider at Discharge: Michelle Montana MD Primary Care Provider: Tomeka Hughes MD Diagnoses at Discharge Discharge Diagnosis (1) Seizure disorder: Status: Acute (2) Breakthrough seizure: Status: Acute (3) Vapes non-nicotine containing substance: Status: Acute Reason for Visit Reason for Visit: SEIZURE Hospital Course Hospital Course History of Present Illness Carlee Blanco is a 45 year old female established history of seizure disorder presented today after an episode of seizure while at work. 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 She could not tolerate flickering of the room light and immediately stepped away from the machine, went outside and fell & started experiencing tonic-clonic seizure. She was brought to the ER for further eval uation. In the ER there were 3-4 episodes of tonic-clonic seizure and postictal confusion reported by the ER staff, she received IV Keppra, Librium and multiple dose of Ativan. At the time of my evaluation patient was drowsy however responds very well to verbal commands answer my questions appropriately, neuro exam nonfocal, able to mention above detail. He does endorse to using electronic cigarettes/vaps. Patient is stating that she would never take Keppra again which makes her suicidal. Normal CBC, BMP, CT head pending, check magnesium level, drug screen, alcohol level. ER physician did talk with Dr. Peters who recommended increasing valproic dose to 1500 mg daily. Hospital course Patient was admitted for monitoring overnight for her breakthrough seizures. Patient did not experience recurrence of seizure-like episodes in the hospital. CT head unremarkable. Her valproic dose has been increased to 750 mg twice a day. For her coarse tremors she is already on gabapentin I have not added Valium which she was taking in August. I have asked to follow-up with Dr. Peters to see if she would benefit from benzodiazepines. I do not suspect any benzodiazepine withdrawal at this time since her last dose was in August. She can continue Topamax. She is reluctant to use Keppra stating multiple reasons such as weight gain and suicidal ideation. Physical Exam Narrative: EXAM NARRATIVE: EOMI, PERRLA NIH 0 Nonfocal neuro exam S1, S2 sinus rhythm no murmur Abdomen soft nontender no signs of peritonitis Lower symmetry no edema Nonfocal neuro exam, she did have coarse tremors of her upper extremities however the improve when she is extending her arms to grab her phone No joint swelling Multiple skin tattoos Does not look dehydrated Appears stated age, Discharge Data Data Completed and Pending: Completed Studies During Hospitalization Category Date Time Status CT head wo con* 7 0450 Urgent Cat Scan 02/23/21 13:52 Completed XR chest 1V sabas ble [id number] Urgent Exams 02/23/21 11:12 Completed Labs from last 24 hours 02/24/21 02/24/21 02/23/21 04:48 04:48 18:05 WBC 7.9 RBC 4.07 L Hgb 13.3 Hct 40.8 MCV 100.2 H MCH 32.7 MCHC 32.6 RDW 12.4 Plt Count 230 MPV 11.0 H Neut % (Auto) 48.7 Lymph % (Auto) 37.3 [place] % (Auto) 11.3 Eos % (Auto) 1.7 Baso % (Auto) 0.5 Neut # (Auto) 3.83 Lymph # (Auto) 2.9 [place] # (Auto) 0.9 Eos # (Auto) 0.1 Baso # (Auto) 0.0 Nucleated RBC % (a uto) 0 Nucleated RBCs # 0.0 Sodium 138 Potassium 3.7 Chloride 100 Carbon Dioxide 27 Anion Gap 14.7 BUN 14 Creatinine 0.7 GFR Calculation 89.7 L Glucose 99 Calculated Osmolal ity 287 Calcium 8.9 Magnesium 2.0 Total Bilirubin AST ALT Alkaline Phosphata se Troponin T Gen 5 n g/L Troponin T 120 Min [place] Delta Troponin T Troponin T Hi Sens 6Hr 14.45 H Troponin T Hi Sens 6Hr Delta 0.45 Total Protein Albumin Globulin Lipase Urine Color Urine Appearance Urine pH Ur Specific Gravit y Urine Protein Urine Glucose (UA) Urine Ketones Urine Blood Urine Nitrate Urine Bilirubin Urine Urobilinogen Ur Leukocyte Keyanna ase Urine HCG, Qual Urine Opiates Scre en Ur Barbiturates Sc reen Valproic Acid Ur Phencyclidine S crn Ur Amphetamines Sc reen U Benzodiazepines Scrn Urine Cocaine Scre en U Marijuana (THC) Screen Ethyl Alcohol 02/23/21 02/23/21 02/23/21 15:00 15:00 12:20 WBC RBC Hgb Hct MCV MCH MCHC RDW Plt Count MPV Neut % (Auto) Lymph % (Auto) [place] % (Auto) Eos % (Auto) Baso % (Auto) Neut # (Auto) Lymph # (Auto) [place] # (Auto) Eos # (Auto) Baso # (Auto) Nucleated RBC % (a uto) Nucleated RBCs # Sodium Potassium Chloride Carbon Dioxide Anion Gap BUN Creatinine GFR Calculation Glucose Calculated Osmolal ity Calcium Magnesium Total Bilirubin AST ALT Alkaline Phosphata se Troponin T Gen 5 n g/L Troponin T 120 Min [place] 20.76 H Delta Troponin T 6.76 Troponin T Hi Sens 6Hr Troponin T Hi Sens 6Hr Delta Total Protein Albumin Globulin Lipase Urine Color Straw Urine Appearance Clear Urine pH 7 Ur Specific Gravit y 1.005 Urine Protein Neg Urine Glucose (UA) Norm Urine Ketones Negative Urine Blood Neg Urine Nitrate Negative Urine Bilirubin Neg Urine Urobilinogen Norm Ur Leukocyte Keyanna ase Negative Urine HCG, Qual Urine Opiates Scre en Ur Barbiturates Sc reen Valproic Acid Ur Phencyclidine S crn Ur Amphetamines Sc reen U Benzodiazepines Scrn Urine Cocaine Scre en U Marijuana (THC) Screen Ethyl Alcohol < 10 02/23/21 02/23/21 02/23/21 12:20 12:20 12:20 WBC RBC Hgb Hct MCV MCH MCHC RDW Plt Count MPV Neut % (Auto) Lymph % (Auto) [place] % (Auto) Eos % (Auto) Baso % (Auto) Neut # (Auto) Lymph # (Auto) [place] # (Auto) Eos # (Auto) Baso # (Auto) Nucleated RBC % (a uto) Nucleated RBCs # Sodium Potassium Chloride Carbon Dioxide Anion Gap BUN Creatinine GFR Calculation Glucose Calculated Osmolal ity Calcium Magnesium Total Bilirubin AST ALT Alkaline Phosphata se Troponin T Gen 5 n g/L 14 H Troponin T 120 Min [place] Delta Troponin T Troponin T Hi Sens 6Hr Troponin T Hi Sens 6Hr [place] Total Protein Albumin Globulin Lipase Urine Color Urine Appearance Urine pH Ur Specific Gravit y Urine Protein Urine Glucose (UA) Urine Ketones Urine Blood Urine Nitrate Urine Bilirubin Urine Urobilinogen Ur Leukocyte Keyanna ase Urine HCG, Qual Negative Urine Opiates Scre en Negative Ur Barbiturates Sc reen Negative Valproic Acid Ur Phencyclidine S crn Negative Ur Amphetamines Sc reen Negative U Benzodiazepines Scrn Negative Urine Cocaine Scre en Negative U Marijuana (THC) Screen Negative Ethyl Alcohol 02/23/21 02/23/21 12:20 12:20 WBC 8.5 RBC 4.17 Hgb 13.6 Hct 40.9 MCV 98.1 MCH 32.6 MCHC 33.3 RDW 12.2 Plt Count 227 MPV 11.0 H Neut % (Auto) 60.6 Lymph % (Auto) 27.8 [place] % (Auto) 9.5 Eos % (Auto) 1.2 Baso % (Auto) 0.5 Neut # (Auto) 5.16 Lymph # (Auto) 2.4 [place] # (Auto) 0.8 Eos # (Auto) 0.1 Baso # (Auto) 0.0 Nucleated RBC % (a uto) 0 Nucleated RBCs # 0.0 Sodium 137 Potassium 3.7 Chloride 102 Carbon Dioxide 25 Anion Gap 13.7 BUN 15 Creatinine 0.6 GFR Calculation 107.2 Glucose 83 Calculated Osmolal ity 284 L Calcium 8.6 Magnesium 2.0 Total Bilirubin 0.2 AST 10 ALT 10 Alkaline Phosphata se 47 Troponin T Gen 5 n g/L Troponin T 120 Min [place] Troponin T Troponin T Hi Sens 6Hr Troponin T Hi Sens 6Hr Delta Total Protein 6.2 L Albumin 4.1 Globulin 2.1 Lipase 9 L Urine Color Urine Appearance Urine pH Ur Specific Gravit y Urine Protein Urine Glucose (UA) Urine Ketones Urine Blood Urine Nitrate Urine Bilirubin Urine Urobilinogen Ur Leukocyte Keyanna ase Urine HCG, Qual Urine Opiates Scre en Ur Barbiturates Sc reen Valproic Acid 50.0 Ur Phencyclidine S crn Ur Amphetamines Sc reen U Benzodiazepines Scrn Urine Cocaine Scre en U Marijuana (THC) Screen Ethyl Alcohol Vitals: Last Vital Signs Temp 98.7 F 02/24/21 11:24 Pulse 77 02/24/21 11:24 Resp 16 02/24/21 11:24 BP 97/67 02/24/21 11:24 Pulse Ox 97 02/24/21 11:24 Discharge Plan Discharge Patient Disposition: Home Condition: Stable Prescriptions: Continued gabapentin 300 mg capsule 300 mg PO BID PRN (Reason: arm pain) 30 Days Qty: 60 RF: 2 topiramate 200 mg tablet 200 mg PO BID 30 Days Qty: 60 RF: 3 fluoxetine 40 mg capsule 40 mg PO DAILY 30 Days Qty: 30 RF: 1 hydrochlorothiazide 25 mg tablet 25 mg PO DAILY RF: 0 ProAir HFA 90 mcg/actuation Hfa Aerosol Inhaler 2 puff INHALATION Q4H PRN (Reason: Shortness Of Breath) RF: 0 Changed Depakote 500 mg tablet,delayed release (DR/EC) 750 mg PO BID 30 Days Qty: 60 RF: 2 Discontinued ibuprofen 200 mg Tablet 800 mg PO Q4H PRN (Reason: Pain) RF: 0 Discharge Orders: Discharge Order (Routine); Ordered 02/24/21 Ordered By: Michelle Montana Referrals: Alea Peters MD [Physician] - 4-7 days Tomeka Hughes MD [Primary Care Provider] - Discharge Diet: Advance as tolerated and Regular Discharge Activity: Resume usual activity Patient Instructions: Epilepsy (ED), Opioid Safety Activity Restrictions/Additional Instructions: Please follow-up with your neurologist for further evaluation of your seizure- like symptoms. Come back to the emergency room if there is any worsening symptoms. Please not bathe on your own, drive, operate heavy machinery, or swim without any supervision. Stand Alone Forms: Work/School Release Discharge Attestations Time Spent in Discharge Care*: less than 30 min Quality Metrics Clinical Quality Measures During this hospital stay, did patient experience: None Coding Level of Care Code Acute g FW [place] note Diagnoses Seizure disorder G40.909 Breakthrough seizure G40.919 Vapes non-nicotine containing substance Z72.89
--- NOTE | 2021-02-24 12:22 | XR_ITS ---
WS: [id number] Right shoulder, AP view, 02/24/2021 Clinical Data: RT shoulder pain Comparison: None. Findings: No fractures or dislocations are seen. The AC joint is normal. The adjacent right clavicle, right sca pula and ribs are normal. The soft tissues are unremarkable. XR/XR shoulder RT 1V [id number] Impression: Negative right shoulder.
--- NOTE | 2021-02-24 12:30 | PC.NURSE ---
Called to patient's room as she was actively seizing in her bed. It is unknown how long patient had been seizing before I got to her room. Patient bit her tongue and did urinate on herself. Patient seized another 2 minutes and Ativan 2mg was given IV at 1238. After patient stopped seizing she vomited a small amount of her lunch. After about 2 minutes patient was able to sit up and talk to this nurse. Patient was cleaned up and Dr. Montana was notified of patient's seizure. Patient is A&Ox3 at this time. No obvious distress noted.
[2021-02-24] MEDS: LORazepam 2 mg/mL INJ 1 mL IVP (12:38)
[2021-02-24] MEDS: diazePAM 2 mg Tablet 1 MG PO (13:05)
--- NOTE | 2021-02-24 16:10 | PC.NURSE ---
Dr. Montana notified that pt will not have a ride to her facility until tomorrow and that they were not comfortable taking the patient back until she is seizure free for 24hr.
[2021-02-24] MEDS: gabapentin 300 mg Capsule PO (17:50)
--- NOTE | 2021-02-24 19:10 | PC.NURSE ---
Report to Milana SUMMERS at this time.
[2021-02-24] MEDS: enoxaparin 40 mg/0.4 mL Syringe SUBCUT (21:12)
[2021-02-25] VITALS: BP 109/71; PULSE 68; RESP 18; TEMP 36.7; O2SAT 97
[2021-02-25 04:00] VITALS: BP 106/70; PULSE 62; RESP 16; TEMP 36.6; O2SAT 97
[2021-02-25] MEDS: topiramate 100 mg Tablet 200 MG PO (09:23)
[2021-02-25] MEDS: fluoxetine 20 mg Capsule 40 MG PO (09:23)
[2021-02-25] MEDS: gabapentin 300 mg Capsule PO (09:23)
--- NOTE | 2021-02-25 10:21 | PM.MISC ---
Miscellaneous Note Purpose of Documentation: EEG Note: ORDERING PHYSICIAN: Dr. Montana. REASON FOR STUDY: Persistent and frequent seizures. STUDY: This was a 21 channel digital electroencephalogram performed using the 10-20 international system of electrode placement. This study was non-sleep deprived and the patient was awake and briefly drowsy. She was restless and frequently moving, sometimes with rhythmic movements. Photic stimulation and hyperventilation were included. FINDINGS: The waking background was characterized by well-modulated posterior alpha at 10-11 hertz, symmetric and of moderate voltage. The patient was restless. There were frequent bursts of rhythmic movement artifact unaccompanied by any changes in the surface EEG. She was briefly drowsy but remained restless throughout. She did not fall asleep. Photic stimulation produced a bilateral driving response in the occipital leads without any evidence of a photoconvulsive response. Hyperventilation for three minutes was performed well and had an alerting effect. No focal, lateralizing or epileptiform activity was seen. IMPRESSION: [This was a normal routine EEG, awake and drowsy and a very restless person who had rhythmic movements described by the aerospace technician and accompanied by movement artifact but no EEG abnormalities. Correlate for the movements that she exhibited during the EEG and whether she thought those were seizures. A sleep deprived tracing is recommended if seizures are strongly suspected. Duration of EE.1
[2021-02-25] MEDS: LORazepam 2 mg/mL INJ 1 mL IVP (12:52)
--- NOTE | 2021-02-25 13:30 | PC.NURSE ---
IV removed intact. Patient tolerated well. Patient is A&Ox3. Respirations even and non-labored on room air. Reviewed patient's discharge instructions with patient at this time. Patient verbalized understanding of follow up appointments and of how to take medications. Patient dressed herself and was wheel chaired to private car at this time.
[2021-02-25 14:07] VITALS: BP 106/70; PULSE 62; RESP 16; TEMP 36.6; O2SAT 97
== END 2021-02-25 13:30 | disposition home or self-care (01) ==
LOC: ER 15:45 → MEDSURG 17:57
PROVIDERS: Admitting Provider Internal Medicine; Emergency Provider Emergency Medicine; PCP Family Medicine; Visit Provider Internal Medicine
DX: G40.919 Epilepsy, unspecified, intractable, without status epilepticus (principal); F17.290 Nicotine dependence, other tobacco product, uncomplicated; F32.9 Major depressive disorder, single episode, unspecified; F41.9 Anxiety disorder, unspecified; Z91.51 Personal history of suicidal behavior; R07.9 Chest pain, unspecified; M25.511 Pain in right shoulder
CPT/HCPCS: 36415; 70450; 71045; 73020; 80048; 80053; 80164; 80306; 80307; 81003; 81025; 83690; 83735; 84484; 85025; 93005; 96372; 96374; 96375; 96376; 99285; G0378; J1650; J2060; J7030